=== PATIENT | female | born 1970 | race Caucasian/White ===

== ENCOUNTER 2023-08-10 13:31 | Inpatient (IN) | payer MEDICAID, OTHER ==
[~2023-08-10] VITALS: Ht 160 cm; Wt 92.4 kg
[~2023-08-10 13:31] MED LIST: GABA-1181 PO; LEVE500T20 PO; OLAN10TA26 PO; OLAN10TA74 PO; PHEN100C23 PO; PHEN60TA16 PO
[2023-08-10 14:22] LABS: COVID AG,FIA SOURCE NASAL SWAB
[2023-08-10 14:42] LABS: SARS-COV2 (COVID) ANTIGEN,FIA Negative (Negative)
[2023-08-10] MEDS ORDERED: DiphenhydrAMINE HCL 50 MG/ML VIAL IM ONE (15:15)
[2023-08-10] MEDS ORDERED: LORazepam 2 MG/ML VIAL IM ONE (15:15)
[2023-08-10] MEDS ORDERED: HALOPERIDOL LACTATE 5 MG/ML VIAL IM ONE (15:15)
[2023-08-10] MEDS ORDERED: ZIPRASIDONE MESYLATE 20 MG/VIAL IM ONE (15:15)
[2023-08-10] MEDS ORDERED: ZOLPIDEM TARTRATE 10 MG TABLET PO PRN (15:45)
[2023-08-10] MEDS ORDERED: OLANZapine 5 MG RAPDIS TABLET PO PRN (15:45)
[2023-08-10 16:11] LABS: BASOPHILS % (AUTO) 0.6 % (0.0-2.0); EOSINOPHILS % (AUTO) 0.2 % (1.0-6.0); HEMATOCRIT 30.2 % (36-46); HEMOGLOBIN 10.6 g/dL (12.0-16.0); LYMPHOCYTES # (AUTO) 1.9 K/uL (1.0-4.8); LYMPHOCYTES % (AUTO) 22.5 % (22.0-44.0); MEAN CORPUSCULAR HEMOGLOBIN 38.6 pg (26.0-34.0); MEAN CORPUSCULAR HGB CONC 35.2 G/dL (31.0-37.0); MEAN CORPUSCULAR VOLUME 110 fL (80-100); MONOCYTES # (AUTO) 0.4 K/uL (0.1-1.0); MONOCYTES % (AUTO) 5.1 % (2.0-9.0); NEUTROPHILS # (AUTO) 6.1 K/uL (1.8-7.7); NEUTROPHILS % (AUTO) 71.6 % (40.0-70.0); PLATELET COUNT (AUTO) 202 K/uL (150-450); RED BLOOD CELL COUNT(AUTO) 2.75 MIL/uL (4.00-5.20); RED CELL DISTRIBUTION WIDTH 13.2 % (11.5-14.5); WHITE BLOOD COUNT (AUTO) 8.5 K/uL (4.5-11.0)
[2023-08-10 16:23] LABS: ALCOHOL, BLOOD (SERUM) < 3 mg/dL (0-10)
[2023-08-10 16:30] LABS: ANION GAP 12 mmol/L (8-16); CALCIUM, TOTAL 8.6 mg/dL (8.8-10.5); CARBON DIOXIDE 22 mmol/L (22-29); CHLORIDE 104 mmol/L (98-107); GLOMERULAR FILTR. RATE CALC > 60 mL/min (>60); GLUCOSE,RANDOM 101 mg/dL (70-110); PHENYTOIN (DILANTIN) 15.5 mcg/mL (10.0-20.0); POTASSIUM 3.7 mmol/L (3.5-5.1); SODIUM SERUM 138 mmol/L (136-145); UREA NITROGEN, BLOOD 12 mg/dL (7-18)
[2023-08-10 16:35] LABS: ALANINE AMINOTRANSFERASE 70 U/L (12-78); ALBUMIN 3.8 g/dL (3.4-5.0); ALKALINE PHOSPHATASE 122 U/L (46-116); ASPARTATE AMINOTRANSFERASE 51 U/L (15-37); BILIRUBIN,TOTAL 0.4 mg/dL (0.1-1.0); RBC MORPHOLOGY COMMENT ABNORMAL RBC MORPH; TOTAL PROTEIN, SERUM 8.3 g/dL (6.4-8.2)
[2023-08-11] MEDS ORDERED: INFLUENZA VIRUS VACCINE QVS 2023-24 (6MO+)/PF 60 MCG/0.5 ML SYRINGE IM. ONE (00:45)
[2023-08-11] MEDS: PHENobarbital 30 MG TABLET PO SCH ×2 (08:33→16:10)
[2023-08-11] MEDS: LevETIRAcetam 500 MG TABLET PO SCH ×2 (08:33→16:10)
[2023-08-11 08:37] LABS: CHOL/HDL RATIO 2.5 (3.9-5.7); FREE T4 (FREE THYROXINE) 0.72 ng/dL (0.76-1.46); THYROID STIMULATING HORMONE 3.25 uIU/mL (0.36-3.74)
[2023-08-11] MEDS: GABAPENTIN 300 MG CAPSULE PO SCH ×2 (10:45→20:06)
[2023-08-11] MEDS: OLANZapine 10 MG TABLET PO SCH ×2 (10:45→20:07)
[2023-08-11] MEDS: PHENYTOIN SODIUM 100 MG ER CAPSULE PO SCH (20:02)
[2023-08-11 20:24] VITALS: BP 139/88; PULSE 102; RESP 18; TEMP 98.1; O2SAT 99
[2023-08-11] MEDS ORDERED: GABAPENTIN 300 MG CAPSULE PO SCH (21:00)
[2023-08-11 22:32] VITALS: BP 139/88; PULSE 102; RESP 18; TEMP 98.1; O2SAT 99
[2023-08-12 08:35] VITALS: BP 117/71; PULSE 82; RESP 18; TEMP 97.5; O2SAT 98
[2023-08-12] MEDS: OLANZapine 10 MG TABLET PO SCH ×2 (09:00→20:32)
[2023-08-12] MEDS: GABAPENTIN 300 MG CAPSULE PO SCH ×2 (09:00→20:32)
[2023-08-12] MEDS: PHENobarbital 30 MG TABLET PO SCH ×2 (09:34→17:19)
[2023-08-12] MEDS: LevETIRAcetam 500 MG TABLET PO SCH ×2 (09:35→17:19)
[2023-08-12] MEDS: PHENYTOIN SODIUM 100 MG ER CAPSULE PO SCH (20:28)
[2023-08-12 21:33] VITALS: BP 145/72; PULSE 96; RESP 18; TEMP 97.7; O2SAT 98
[2023-08-13] MEDS: GABAPENTIN 300 MG CAPSULE PO SCH ×2 (09:00→21:00)
[2023-08-13] MEDS: OLANZapine 10 MG TABLET PO SCH ×2 (09:00→21:00)
[2023-08-13] MEDS: PHENobarbital 30 MG TABLET PO SCH ×2 (09:17→16:36)
[2023-08-13] MEDS: LevETIRAcetam 500 MG TABLET PO SCH ×2 (09:17→16:36)
[2023-08-13] MEDS: LORazepam 2 MG TABLET PO PRN (14:35)
[2023-08-13 19:01] VITALS: BP 128/77; PULSE 77; RESP 18; TEMP 97.8
[2023-08-13] MEDS: PHENYTOIN SODIUM 100 MG ER CAPSULE PO SCH (20:07)
[2023-08-14 02:09] VITALS: BP 132/82; PULSE 89; RESP 16; TEMP 97.1; O2SAT 99
[2023-08-14] MEDS: PHENobarbital 30 MG TABLET PO SCH ×2 (08:26→16:09)
[2023-08-14] MEDS: OLANZapine 10 MG TABLET PO SCH ×2 (08:26→20:22)
[2023-08-14] MEDS: LevETIRAcetam 500 MG TABLET PO SCH ×2 (08:26→16:10)
[2023-08-14] MEDS: GABAPENTIN 300 MG CAPSULE PO SCH ×2 (08:26→20:22)
[2023-08-14 08:30] VITALS: RESP 20; TEMP 97.6
[2023-08-14] MEDS ORDERED: HALOPERIDOL LACTATE 5 MG/ML VIAL ONE (10:05)
[2023-08-14] MEDS ORDERED: DiphenhydrAMINE HCL 50 MG/ML VIAL ONE (10:05)
[2023-08-14] MEDS ORDERED: LORazepam 2 MG/ML VIAL ONE (10:05)
[2023-08-14] MEDS ORDERED: HALOPERIDOL LACTATE 5 MG/ML VIAL IM ONE (10:15)
[2023-08-14] MEDS ORDERED: LORazepam 2 MG/ML VIAL IM ONE (10:15)
[2023-08-14] MEDS ORDERED: DiphenhydrAMINE HCL 50 MG/ML VIAL IM ONE (10:15)
[2023-08-14 20:00] VITALS: BP 130/73; PULSE 87; RESP 18; TEMP 97.7; O2SAT 96
[2023-08-14] MEDS: PHENYTOIN SODIUM 100 MG ER CAPSULE PO SCH (20:20)
[2023-08-15] MEDS: LevETIRAcetam 500 MG TABLET PO SCH ×2 (10:40→16:20)
[2023-08-15] MEDS: PHENobarbital 30 MG TABLET PO SCH ×2 (10:40→16:20)
[2023-08-15] MEDS: GABAPENTIN 300 MG CAPSULE PO SCH ×2 (10:40→20:03)
[2023-08-15] MEDS: OLANZapine 10 MG TABLET PO SCH ×2 (10:40→20:03)
[2023-08-15 10:55] VITALS: BP 110/60; PULSE 81; RESP 18; TEMP 97.6; O2SAT 97
[2023-08-15] MEDS: PHENYTOIN SODIUM 100 MG ER CAPSULE PO SCH (20:03)
[2023-08-15 22:24] VITALS: BP 109/81; PULSE 96; RESP 18; TEMP 97.3; O2SAT 96
[2023-08-16] MEDS: LevETIRAcetam 500 MG TABLET PO SCH ×2 (09:04→16:41)
[2023-08-16] MEDS: GABAPENTIN 300 MG CAPSULE PO SCH ×2 (09:04→20:39)
[2023-08-16] MEDS: OLANZapine 10 MG TABLET PO SCH (09:04)
[2023-08-16] MEDS: PHENobarbital 30 MG TABLET PO SCH ×2 (09:04→16:41)
[2023-08-16 13:49] VITALS: BP 100/70; PULSE 82; RESP 17; TEMP 97.9; O2SAT 93
[2023-08-16] MEDS ORDERED: OLAN10TA74 PO (18:37)
[2023-08-16] MEDS ORDERED: PHEN60TA16 PO (18:38)
[2023-08-16] MEDS: PHENYTOIN SODIUM 100 MG ER CAPSULE PO SCH (20:38)
[2023-08-16] MEDS: LORazepam 2 MG TABLET PO PRN (20:39)
== END 2023-08-16 19:10 | disposition home or self-care (01) | DRG 750 ==
LOC: EDUNIT# 13:31 → EMS 13:37 → B3A 18:29 → EDBD 18:29
PROVIDERS: ADMIT Psychiatry & Neurology Child & Adolescent Psychiatry; ATTEND Psychiatry & Neurology Child & Adolescent Psychiatry
DX: F20.0 Paranoid schizophrenia (principal); G40.909 Epilepsy, unspecified, not intractable, without status epilepticus; D64.9 Anemia, unspecified; Z20.822 Contact with and (suspected) exposure to COVID-19; R74.01 Elevation of levels of liver transaminase levels; Z88.8 Allergy status to other drugs, medicaments and biological substances; Z79.899 Other long term (current) drug therapy
CPT/HCPCS: 80053; 80061; 80184; 80185; 84439; 84443; 85025; 99291; G0480; J1200; J1630; J2060; J3486

== ENCOUNTER 2023-08-25 12:14 | Inpatient (IN) | payer MEDICAID, OTHER ==
[~2023-08-25] VITALS: Ht 157.5 cm; Wt 92.5 kg
[~2023-08-25 12:14] MED LIST changes: -OLAN10TA26 PO
[2023-08-25] MEDS ORDERED: HALOPERIDOL 5 MG TABLET PO PRN (13:30)
[2023-08-25 13:33] LABS: COVID AG,FIA SOURCE NASAL SWAB
[2023-08-25 13:37] LABS: ANION GAP 10 mmol/L (8-16); CALCIUM, TOTAL 8.8 mg/dL (8.8-10.5); CARBON DIOXIDE 24 mmol/L (22-29); CHLORIDE 105 mmol/L (98-107); CREATININE 0.68 mg/dL (0.60-1.30); GLOMERULAR FILTR. RATE CALC > 60 mL/min (>60); GLUCOSE,RANDOM 103 mg/dL (70-110); POTASSIUM 3.7 mmol/L (3.5-5.1); SODIUM SERUM 139 mmol/L (136-145); UREA NITROGEN, BLOOD 18 mg/dL (7-18)
[2023-08-25 13:40] LABS: ALCOHOL, BLOOD (SERUM) < 3 mg/dL (0-10)
[2023-08-25 13:43] LABS: ALANINE AMINOTRANSFERASE 31 U/L (12-78); ALBUMIN 3.7 g/dL (3.4-5.0); ALKALINE PHOSPHATASE 112 U/L (46-116); ASPARTATE AMINOTRANSFERASE 24 U/L (15-37); BILIRUBIN,TOTAL 0.4 mg/dL (0.1-1.0); PHENOBARBITAL 23 mcg/mL (15-40); PHENYTOIN (DILANTIN) 9.1 mcg/mL (10.0-20.0); TOTAL PROTEIN, SERUM 8.2 g/dL (6.4-8.2)
[2023-08-25 14:00] LABS: SARS-COV2 (COVID) ANTIGEN,FIA Negative (Negative)
[2023-08-25 14:56] LABS: BASOPHILS % (AUTO) 0.5 % (0.0-2.0); EOSINOPHILS % (AUTO) 0 % (1.0-6.0); HEMATOCRIT 31.4 % (36-46); LYMPHOCYTES % (AUTO) 27.8 % (22.0-44.0); MEAN CORPUSCULAR HEMOGLOBIN 37.7 pg (26.0-34.0); MEAN CORPUSCULAR HGB CONC 35.1 G/dL (31.0-37.0); MEAN CORPUSCULAR VOLUME 108 fL (80-100); MONOCYTES # (AUTO) 0.5 K/uL (0.1-1.0); MONOCYTES % (AUTO) 6.4 % (2.0-9.0); NEUTROPHILS # (AUTO) 4.7 K/uL (1.8-7.7); NEUTROPHILS % (AUTO) 65.3 % (40.0-70.0); PLATELET COUNT (AUTO) 229 K/uL (150-450); RED BLOOD CELL COUNT(AUTO) 2.92 MIL/uL (4.00-5.20); RED CELL DISTRIBUTION WIDTH 13.8 % (11.5-14.5); WHITE BLOOD COUNT (AUTO) 7.2 K/uL (4.5-11.0)
[2023-08-25 15:00] LABS: APPEARANCE,URINE HAZY (CLEAR); BILIRUBIN,URINE NEGATIVE (NEGATIVE); COLOR,URINE YELLOW (YELLOW); GLUCOSE, URINE (UA) NEGATIVE (NEGATIVE); KETONES,URINE NEGATIVE (NEGATIVE); LEUKOCYTE ESTERASE ,URINE LARGE (NEGATIVE); NITRATE,URINE NEGATIVE (NEGATIVE); OCCULT BLOOD,URINE SMALL (NEGATIVE); PROTEIN,URINE 30-70 mg/dL (NEGATIVE); SPECIFIC GRAVITIY, URINE 1.033 (1.003-1.030); UROBILINOGEN,URINE <=1.0 mg/dL (<=1.0)
[2023-08-25 15:06] LABS: ALCOHOL, URINE DRUG SCREEN NEGATIVE (NEGATIVE); AMPHET/METH SCREEN,URINE NEGATIVE (NEGATIVE); BARBITURATE SCREEN, URINE POSITIVE (NEGATIVE); BENZODIAZEPINES SCREEN,URINE NEGATIVE (NEGATIVE); CANNABINOID SCREEN,URINE NEGATIVE (NEGATIVE); COCAINE SCREEN,URINE NEGATIVE (NEGATIVE); METHADONE SCREEN, URINE NEGATIVE (NEGATIVE); OPIATE SCREEN,URINE NEGATIVE (NEGATIVE); PHENCYCLIDINE SCREEN,URINE NEGATIVE (NEGATIVE)
[2023-08-25 15:18] LABS: RBC MORPHOLOGY COMMENT ABNORMAL RBC MORPH
[2023-08-25 15:22] LABS: AMORPHOUS SEDIMENT,UR Few /LPF (None Seen); BACTERIA,URINE Few /HPF (None Seen); SQUAMOUS EPITHELIAL CELL,UR Moderate /LPF (None Seen)
[2023-08-25] MEDS: ZOLPIDEM TARTRATE 10 MG TABLET PO PRN (19:30)
[2023-08-25] MEDS: LORazepam 2 MG TABLET PO PRN (19:30)
[2023-08-26] MEDS ORDERED: CefTRIAXone 1 GM/DEXTROSE 50 ML IV ONE (12:15)
[2023-08-26] MEDS ORDERED: CefTRIAXone SODIUM 1 GM/VIAL IM ONE (12:30)
[2023-08-26] MEDS ORDERED: LIDOCAINE/PF 1% 2 ML VIAL IM ONE (12:30)
[2023-08-26] MEDS ORDERED: CloNIDine HCL 0.1 MG TABLET PO PRN (15:30)
[2023-08-26] MEDS ORDERED: NICOTINE 14 MG/24 HOUR PATCH TD PRN (15:30)
[2023-08-26] MEDS ORDERED: MAG HYDROX/ALUMINUM HYD/SIMETH ES 30 ML SUSPENSION UDCUP PO PRN (15:30)
[2023-08-26] MEDS ORDERED: PETROLATUM,WHITE 28 GM JELLY TP PRN (15:30)
[2023-08-26] MEDS ORDERED: GuaiFENesin/D-METHORPHAN [SUGAR-FREE] 200-20MG/10 ML SYRUP UDCUP PO PRN (15:30)
[2023-08-26] MEDS ORDERED: IBUPROFEN 400 MG TABLET PO PRN (15:30)
[2023-08-26] MEDS ORDERED: ACETAMINOPHEN 325 MG TABLET PO PRN (15:30)
[2023-08-26] MEDS ORDERED: DOCUSATE SODIUM 100 MG CAPSULE PO PRN (15:30)
[2023-08-26] MEDS ORDERED: ONDANSETRON HCL 4 MG TABLET PO PRN (15:30)
[2023-08-26] MEDS ORDERED: MAGNESIUM HYDROXIDE SUSPENSION 30 ML UDCUP PO PRN (15:30)
[2023-08-26] MEDS ORDERED: ALBUTEROL SULFATE HFA 90 MCG/PUFF 8 GM INHALER IH PRN (15:30)
[2023-08-26] MEDS ORDERED: LOPERAMIDE HCL 2 MG CAPSULE PO PRN (15:30)
[2023-08-26] MEDS ORDERED: HALOPERIDOL 5 MG TABLET PO PRN (15:45)
[2023-08-26 15:58] VITALS: BP 133/89; PULSE 83; RESP 16; TEMP 97.4; O2SAT 96
[2023-08-26] MEDS: SULFAMETHOX/TRIMETH DS 800-160 MG/TABLET PO SCH (16:41)
[2023-08-26] MEDS: LevETIRAcetam 500 MG TABLET PO SCH (16:41)
[2023-08-26] MEDS ORDERED: INFLUENZA VIRUS VACCINE QVS 2023-24 (6MO+)/PF 60 MCG/0.5 ML SYRINGE IM. ONE (18:15)
[2023-08-26 21:16] VITALS: BP 129/74; PULSE 80; RESP 17; TEMP 97.8
[2023-08-26] MEDS: LORazepam 2 MG TABLET PO PRN (21:25)
[2023-08-26] MEDS: PHENobarbital 30 MG TABLET PO SCH (21:25)
[2023-08-26] MEDS: PHENYTOIN SODIUM 100 MG ER CAPSULE PO SCH (21:25)
[2023-08-26] MEDS: ZOLPIDEM TARTRATE 10 MG TABLET PO PRN (21:25)
[2023-08-27 08:49] LABS: BASOPHILS % (AUTO) 0.4 % (0.0-2.0); EOSINOPHILS % (AUTO) 0 % (1.0-6.0); HEMATOCRIT 33.2 % (36-46); HEMOGLOBIN 11.8 g/dL (12.0-16.0); LYMPHOCYTES # (AUTO) 2.5 K/uL (1.0-4.8); LYMPHOCYTES % (AUTO) 32.4 % (22.0-44.0); MEAN CORPUSCULAR HEMOGLOBIN 39.5 pg (26.0-34.0); MEAN CORPUSCULAR HGB CONC 35.6 G/dL (31.0-37.0); MEAN CORPUSCULAR VOLUME 111 fL (80-100); MONOCYTES # (AUTO) 0.4 K/uL (0.1-1.0); MONOCYTES % (AUTO) 5.4 % (2.0-9.0); NEUTROPHILS # (AUTO) 4.7 K/uL (1.8-7.7); NEUTROPHILS % (AUTO) 61.8 % (40.0-70.0); PLATELET COUNT (AUTO) 252 K/uL (150-450); RED BLOOD CELL COUNT(AUTO) 2.99 MIL/uL (4.00-5.20); RED CELL DISTRIBUTION WIDTH 14.1 % (11.5-14.5); WHITE BLOOD COUNT (AUTO) 7.7 K/uL (4.5-11.0)
[2023-08-27 08:50] LABS: RBC MORPHOLOGY COMMENT ABNORMAL RBC MORPH
[2023-08-27 09:14] VITALS: BP 130/79; PULSE 86; RESP 18; TEMP 98; O2SAT 99
[2023-08-27] MEDS: LevETIRAcetam 500 MG TABLET PO SCH ×2 (09:24→18:01)
[2023-08-27] MEDS: SULFAMETHOX/TRIMETH DS 800-160 MG/TABLET PO SCH ×2 (09:24→18:01)
[2023-08-27 09:28] LABS: ALANINE AMINOTRANSFERASE 32 U/L (12-78); ALBUMIN 3.8 g/dL (3.4-5.0); ALKALINE PHOSPHATASE 124 U/L (46-116); ANION GAP 9 mmol/L (8-16); ASPARTATE AMINOTRANSFERASE 28 U/L (15-37); BILIRUBIN,TOTAL 0.4 mg/dL (0.1-1.0); CALCIUM, TOTAL 8.7 mg/dL (8.8-10.5); CARBON DIOXIDE 25 mmol/L (22-29); CHLORIDE 103 mmol/L (98-107); CHOL/HDL RATIO 2.5 (3.9-5.7); CHOLESTEROL 133 mg/dL (131-200); CREATININE 0.69 mg/dL (0.60-1.30); FREE T4 (FREE THYROXINE) 0.68 ng/dL (0.76-1.46); GLOMERULAR FILTR. RATE CALC > 60 mL/min (>60); GLUCOSE,RANDOM 102 mg/dL (70-110); HDL CHOLESTEROL 53 mg/dL (40-60); LDL CHOL (CALC.) 56 mg/dL (0-130); POTASSIUM 3.7 mmol/L (3.5-5.1); SODIUM SERUM 137 mmol/L (136-145); THYROID STIMULATING HORMONE 15.32 uIU/mL (0.36-3.74); TOTAL PROTEIN, SERUM 8.9 g/dL (6.4-8.2); TRIGLYCERIDES 122 mg/dL (15-150); UREA NITROGEN, BLOOD 17 mg/dL (7-18)
[2023-08-27] MEDS: OLANZapine 10 MG TABLET PO SCH ×2 (12:30→20:18)
[2023-08-27 20:00] VITALS: BP 100/66; PULSE 103; RESP 18; TEMP 97.5; O2SAT 98
[2023-08-27] MEDS: PHENYTOIN SODIUM 100 MG ER CAPSULE PO SCH (20:18)
[2023-08-27] MEDS: PHENobarbital 30 MG TABLET PO SCH (20:18)
[2023-08-28] MEDS: SULFAMETHOX/TRIMETH DS 800-160 MG/TABLET PO SCH ×2 (08:32→16:26)
[2023-08-28] MEDS: LevETIRAcetam 500 MG TABLET PO SCH ×2 (08:32→16:26)
[2023-08-28] MEDS: OLANZapine 10 MG TABLET PO SCH ×2 (08:32→20:02)
[2023-08-28 08:33] VITALS: BP 141/94; PULSE 75; RESP 18; TEMP 97.8; O2SAT 99
[2023-08-28] MEDS: PHENYTOIN SODIUM 100 MG ER CAPSULE PO SCH (20:01)
[2023-08-28] MEDS: PHENobarbital 30 MG TABLET PO SCH (20:01)
[2023-08-28 21:43] VITALS: BP 169/87; PULSE 80; RESP 16; TEMP 97; O2SAT 96
[2023-08-29 08:15] VITALS: BP 106/61; PULSE 71; RESP 18; TEMP 97.6; O2SAT 98
[2023-08-29] MEDS: LevETIRAcetam 500 MG TABLET PO SCH ×2 (08:31→16:21)
[2023-08-29] MEDS: SULFAMETHOX/TRIMETH DS 800-160 MG/TABLET PO SCH ×2 (08:31→16:21)
[2023-08-29] MEDS: OLANZapine 10 MG TABLET PO SCH ×2 (08:31→20:17)
[2023-08-29] MEDS: PHENobarbital 30 MG TABLET PO SCH (20:17)
[2023-08-29] MEDS: PHENYTOIN SODIUM 100 MG ER CAPSULE PO SCH (20:17)
[2023-08-29 20:58] VITALS: BP 115/63; PULSE 81; RESP 18; TEMP 97.9; O2SAT 97
[2023-08-30 08:32] VITALS: BP 117/73; PULSE 80; RESP 18; TEMP 97.5; O2SAT 97
[2023-08-30] MEDS: LevETIRAcetam 500 MG TABLET PO SCH (09:25)
[2023-08-30] MEDS: OLANZapine 10 MG TABLET PO SCH (09:25)
[2023-08-30] MEDS: SULFAMETHOX/TRIMETH DS 800-160 MG/TABLET PO SCH (09:25)
[2023-08-30] MEDS ORDERED: LEVE500T8 PO (10:33)
[2023-08-30] MEDS ORDERED: PHEN60TA16 PO (10:33)
[2023-08-30] MEDS ORDERED: PHEN100C23 PO (10:33)
== END 2023-08-30 11:50 | disposition home or self-care (01) | DRG 750 ==
LOC: EMS 12:14 → B3A 08-26 12:02
PROVIDERS: ADMIT Psychiatry & Neurology Child & Adolescent Psychiatry; ATTEND Psychiatry & Neurology Child & Adolescent Psychiatry
DX: F20.0 Paranoid schizophrenia (principal); G40.909 Epilepsy, unspecified, not intractable, without status epilepticus; D64.9 Anemia, unspecified; E66.3 Overweight; G47.00 Insomnia, unspecified; Z20.822 Contact with and (suspected) exposure to COVID-19; Z59.00 Homelessness unspecified; Z88.8 Allergy status to other drugs, medicaments and biological substances; Z68.37 Body mass index [BMI] 37.0-37.9, adult
CPT/HCPCS: 80053; 80061; 80184; 80185; 80307; 81001; 83036; 84439; 84443; 85025; 87081; 87086; 87186; 99285; G0480; J0696; J3490